=== PATIENT | female | born 1960 | race Caucasian/White ===

== ENCOUNTER 2018-02-22 13:54 | Outpatient (CLI) | payer MEDICARE, OTHER | END 2018-02-22 13:55 | disposition home or self-care (01) | LOC: BICMAMMO 13:54 | PROVIDERS: ATTEND Family Medicine | DX: Z12.31 Encounter for screening mammogram for malignant neoplasm of breast (principal) | CPT/HCPCS: 77063; 77067 ==

== ENCOUNTER 2020-02-17 08:45 | Outpatient (CLI) | payer MEDICARE, MEDICAID ==
[2020-02-17] MEDS ORDERED: Iopamidol-370 76% 500 ML 1 ML ONE (09:29)
[2020-02-17 11:42] LABS: Estimated GFR-MDRD - POC Greater than 90
--- NOTE | 2020-02-17 12:16 | CT ---
CT ABDOMEN WITH CONTRAST CT PELVIS WITH CONTRAST: DATE: 02/17/2020 HISTORY: 59-year-old female with right-sided abdominal pain and chronic constipation COMPARISON: 01/13/2014 TECHNIQUE: IV injection of iodinated contrast media: administered. Oral contrast media:Administered FINDINGS: There is a new finding of mild dilation of right renal collecting system. There is no hydroureter. Ur inary bladder mural thickness is normal. No calculus identified in the kidney or bladder. Previously, there was an approximately 3.4 x 4.4 x 3.0 cm thin-walled cyst within the right side of t he pelvic cavity. Currently, there is also a thin-walled cyst in the right pelvic cavity in a similar location, measuring 3.3 x 2.4 x 3.8 cm. It abuts the right posterior aspect of the urinary bl adder. It is contiguous with, and inseparable from a new smaller, 2.2 x 1.8 cm thin-walled cystic structure posterior to it, which also abuts the posterior superior surface of the urinary bladder. Th dandre and 2 components may represent 2 chambers of a single septated cyst, or they could represent 2 separate cysts abutting each other. Left kidney is surgically absent. Gallbladder is now surgically absent, and there are now clips in gallbladder fossa. No abnormality id entified involving liver, abdominal aorta, adrenals, or pancreas. Entire colon is redundant. Large volume of colonic stool. Cecum is ptotic, with ascending colon in the pelvic cavity, and cecum crossing the midline to the lef t anterior pelvis. Appendix difficult to identify with certainty. No signs of colonic diverticulitis, small bowel dilation, pneumoperitoneum, or pleural effusion. Old mild compression fracture of superior endplate of L5. Uterus is absent. IMPRESSION: 1) new finding of mild right hydronephrosis, suggestive of low-grade partial obstruction at right UPJ (ureteropelvic junction). 2) status post left nephrectomy. 3) status post cholecystectomy. 4) nonspecific to cysts or single septated cyst in the right pelvic cavity. 5) status post hysterectomy
== END 2020-02-17 08:46 | disposition home or self-care (01) ==
LOC: BICCT 08:45
PROVIDERS: ATTEND Physician Assistant Medical
DX: K21.9 Gastro-esophageal reflux disease without esophagitis (principal); K59.09 Other constipation; R10.9 Unspecified abdominal pain; N13.30 Unspecified hydronephrosis; Z90.49 Acquired absence of other specified parts of digestive tract; Z90.710 Acquired absence of both cervix and uterus; Z90.5 Acquired absence of kidney
CPT/HCPCS: 74177; 82565

== ENCOUNTER 2021-08-12 22:19 | Observation (INO) | payer MEDICARE, MEDICAID ==
[2021-08-12 23:16] LABS: Bilirubin Negative (Negative); Blood, Urine Negative (Negative); Clarity Clear (Clear); Glucose, Urine (Dipstick) Normal (Negative); Ketone, Urine Negative (Negative); Leukocyte Negative Leu/uL (Negative); Nitrite Negative (Negative); Protein, Urine (Dipstick) Negative (Neg-Trace); Specific Gravity, Urine 1.014 (1.002-1.036)
[2021-08-12 23:25] LABS: Amphetamine Not Detected (NotDetected); Barbiturates Screen Not Detected (NotDetected); Benzodiazepine Screen Not Detected (NotDetected); Cocaine Metabolite Screen Not Detected (NotDetected); Methadone Not Detected (NotDetected); Methamphetamine Not Detected (NotDetected); Opiate Screen Not Detected (NotDetected); Oxycodone Screen Not Detected (NotDetected); Phencyclidine (PCP) Not Detected (NotDetected); THC/Cannabinoid Screen Not Detected (NotDetected); Tricyclic Screen Detected (NotDetected)
[2021-08-12 23:31] LABS: ALT (SGPT) 25 U/L (8-55); AST (SGOT) 41 U/L (5-34); Albumin 2.8 g/dL (3.4-4.8); Alkaline Phosphatase 126 U/L (40-110); Anion Gap 17 mmol/L (10-20); BUN (Urea Nitrogen) 7 mg/dL (9.8-20.1); Bilirubin, Total 0.4 mg/dL (0.2-1.2); Calc. Creatinine Clearance 0 mL/min (70-130); Calcium 8.4 mg/dL (7.8-10.44); Carbon Dioxide 20 mmol/L (23-31); Chloride 109 mmol/L (98-107); Globulin 2.9 g/dL (2.4-3.5); Glucose 109 mg/dL (80-115); Potassium 3.9 mmol/L (3.5-5.1); Protein, Total 5.7 g/dL (5.8-8.1); Sodium 142 mmol/L (136-145)
[2021-08-12 23:33] LABS: Acetaminophen Less than 6.0 mcg/mL (10.0-30.0); Alcohol 36 mg/dL (Less than 10); CK (CPK) 63 U/L (29-168); Salicylate Less than 8.0 mg/dL (15.0-30.0)
[2021-08-12 23:37] LABS: Band 2 % (5-11); Eosinophils 1 % (0-10); Hemoglobin 13.5 g/dL (12.0-16.0); Lymphocytes 66 % (21-51); MDiff Complete? YES; Macrocytosis MODERATE=16-30 cells (100X) (0-5/hpf); Mean Corpuscular HGB CONC 33.2 g/dL (32.0-36.0); Mean Corpuscular Hemoglobin 39.5 pg (27.0-31.0); Mean Platelet Volume 6.9 fL (7.4-10.4); Monocytes 4 % (0-10); Neutrophil 27 % (42-75); Platelet Count 160 thou/uL (130-400); Red Blood Cell (RBC) Count 3.41 mill/uL (4.20-5.40); White Blood Cell (WBC) Count 4.3 thou/uL (4.8-10.8)
[2021-08-13 00:40] LABS: Actual Bicarbonate (HCO3a) 23.2 mEq/L (22-28); Analyzer IN Cardio ER; Base Excess (BEa) -2.4 mEq/L (-2.0 to +3.0); CO2 Tension 42.9 mmHg (35.0-45.0); Carboxyhemoglobin (COHb) 1.7 gm% (0.0-3.0); Hemoglobin (Hb) 11.5 g/dL (12.0-16.0); O2 Tension (PaO2), arterial 72.7 mmHg (> 80.0); Potassium - ABG Lab 3.61 mmol/L (3.70-5.30); pH, Arterial 7.35 (7.35-7.45)
[2021-08-13 00:49] LABS: ALV-art Gradient 73.315 mmHg (0-20); Puncture Site RRA
[2021-08-13] MEDS ORDERED: Ondansetron PF 4 MG/2 ML Vial IVP PRN (02:21)
[2021-08-13] MEDS ORDERED: Acetaminophen 325 MG TAB PO PRN (02:21)
[2021-08-13] MEDS ORDERED: Lorazepam 2 MG/ML VIAL IM PRN (02:26)
[2021-08-13] MEDS ORDERED: Lorazepam 1 MG TAB PO PRN (02:26)
[2021-08-13] MEDS ORDERED: Electrolyte Replacement Protocol 1 EACH FS SCH (02:30)
[2021-08-13] MEDS ORDERED: Aspirin 325 MG TAB PO SCH (03:00)
[2021-08-13 04:05] VITALS: BMI 28.3
[2021-08-13] MEDS ORDERED: Folic Acid 1 MG TAB PO SCH (05:00)
[2021-08-13] MEDS ORDERED: Thiamine HCl 200 MG/2 ML VIAL SLOW IVP SCH (05:00)
[2021-08-13 06:15] LABS: #Eosinphils 0.1 thou/uL (0.0-0.7); #Monocytes 0.5 thou/uL (0.11-0.59); #Neutrophils 2.5 thou/uL (1.40-6.50); %Basophils 0.6 % (0.0-1.0); %Eosinophils 2.7 % (0.0-10.0); %Lymphocytes 38.5 % (21.0-51.0); %Monocytes 8.8 % (0.0-10.0); %Neutrophils 49.3 % (42.0-75.0); Hemoglobin 12.3 g/dL (12.0-16.0); Mean Corpuscular HGB CONC 31.8 g/dL (32.0-36.0); Mean Corpuscular Hemoglobin 36.9 pg (27.0-31.0); Mean Platelet Volume 6.9 fL (7.4-10.4); Platelet Count 159 thou/uL (130-400); Red Blood Cell (RBC) Count 3.34 mill/uL (4.20-5.40); White Blood Cell (WBC) Count 5.1 thou/uL (4.8-10.8)
[2021-08-13 06:24] LABS: Anion Gap 12 mmol/L (10-20); BUN (Urea Nitrogen) 7 mg/dL (9.8-20.1); Calc. Creatinine Clearance 98 mL/min (70-130); Calcium 8.2 mg/dL (7.8-10.44); Carbon Dioxide 27 mmol/L (23-31); Chloride 110 mmol/L (98-107); Glucose 93 mg/dL (80-115); Sodium 145 mmol/L (136-145)
[2021-08-13 06:29] LABS: Magnesium 1.7 mg/dL (1.6-2.6); Phosphorus 3.5 mg/dL (2.3-4.7)
[2021-08-13] MEDS ORDERED: Magnesium 2 GM/50 ML 2 GM in Premix Bag 1 BAG IVPB SCH (06:45)
[2021-08-13] MEDS ORDERED: Enoxaparin Sodium 40 MG/0.4 ML SYRINGE SC SCH (09:00)
[2021-08-13] MEDS ORDERED: FLU VACC QS2021-22(6MOS UP)/PF 60 MCG/0.5 ML SYRINGE IM ONE (09:00)
[2021-08-13] MEDS ORDERED: Famotidine 20 MG TAB PO SCH (09:00)
[2021-08-13] MEDS ORDERED: Multivit, Therapeutic 1 TAB PO SCH (09:00)
[2021-08-13 13:04] VITALS: BP 151/78; TEMP 98
[2021-08-13 16:08] LABS: SARS-CoV-2 PCR by NAA Not Detected (NotDetected)
[2021-08-13] MEDS ORDERED: Prazosin HCl 1 MG CAP PO SCH (21:00)
[2021-08-13] MEDS ORDERED: ZALEPLON 10 MG PO SCH (21:00)
[2021-08-14] MEDS ORDERED: Lorazepam 1 MG TAB PO PRN (02:26)
[2021-08-14] MEDS ORDERED: Folic Acid 1 MG TAB PO SCH (09:00)
[2021-08-15] MEDS ORDERED: Lorazepam 1 MG TAB PO PRN (02:26)
[2021-08-16] MEDS ORDERED: Lorazepam 0.5 MG TAB PO PRN (02:26)
[2021-08-16] MEDS ORDERED: Thiamine 100 MG TAB PO SCH (09:00)
== END 2021-08-13 18:00 | disposition home or self-care (01) ==
LOC: ERS 22:19 → NEURO 08-13 01:54
PROVIDERS: ADMIT Internal Medicine; ATTEND Internal Medicine
DX: G93.40 Encephalopathy, unspecified (principal); I69.322 Dysarthria following cerebral infarction; I11.0 Hypertensive heart disease with heart failure; I50.32 Chronic diastolic (congestive) heart failure; F10.10 Alcohol abuse, uncomplicated; E03.9 Hypothyroidism, unspecified; R19.7 Diarrhea, unspecified; F31.9 Bipolar disorder, unspecified; J45.909 Unspecified asthma, uncomplicated; G89.29 Other chronic pain; F17.210 Nicotine dependence, cigarettes, uncomplicated; G43.709 Chronic migraine without aura, not intractable, without status migrainosus; Z91.52 Personal history of nonsuicidal self-harm; Z79.899 Other long term (current) drug therapy; Z89.511 Acquired absence of right leg below knee; Z90.5 Acquired absence of kidney; Z20.822 Contact with and (suspected) exposure to COVID-19; Y90.1 Blood alcohol level of 20-39 mg/100 ml
CPT/HCPCS: 36600; 70450; 70551; 71045; 80048; 80306; 80307; 81003; 82140; 82550; 82805; 83735; 84100; 84484; 85025; 93005; 96372; 96374; 96375; G0378 ×2; U0003; U0005; 36415; 80053; 84443; J1650; J3411; J3475